=== PATIENT | female | born 1950 | race Caucasian/White ===

== ENCOUNTER 2021-08-13 10:11 | Outpatient (CLI) | payer SELFPAY, OTHER ==
--- NOTE | 2021-08-13 10:14 | ECHOD_ITS ---
Reason For Study: Chest Pain Procedure This was a 2D Doppler, Color Flow transthoracic echocardiogram. Exam performed in department. Left Ventricle Normal LV size. Mild concentric left ventricular hypertrophy. Left ventricular systolic function is normal. The estimated ejection fraction is 60 %. Stage 1 diastolic dysfunction. No regional wall motion abnormalities noted. Right Ventricle Normal RV size. Normal systolic function. Atria Normal left atrium. Normal right atrium. Mitral Valve Normal mitral valve. Tricuspid Valve Normal tricuspid valve. Mild (1+) tricuspid valve insufficiency. Pulmonary artery systolic pressure is 24 mmHg. Aortic Valve Trisinus/trileaflet aortic valve. Mild focal aortic valve calcification. Pulmonic Valve Normal pulmonic valve. Great Vessels Normal aortic root. The pulmonary artery is normal size. Normal inferior vena cava. Pericardium/Pleural No pericardial effusion. MMode/2D Measurements & Calculations LVIDd: 3.5 cm IVSd: 1.2 cm Ao root diam: 3.2 cm LVIDs: 2.2 cm LVPWd: 1.2 cm RVDd: 2.7 cm FS: 37.2 % LAV(MOD-bp): 30.0 ml LVAd ap4: 20.3 cm2 SV(MOD-sp4): 31.2 ml LAV(MOD-bp) Indexed: 16.1 ml/m2 LVLd ap4: 7.1 cm LAV(MOD-sp2): 38.8 ml EDV(MOD-sp4): 48.3 ml LAV(MOD-sp4): 22.4 ml EDV(sp4-el): 49.4 ml LVAs ap4: 11.1 cm2 LVLs ap4: 6.2 cm ESV(MOD-sp4): 17.2 ml ESV(sp4-el): 16.7 ml EF(MOD-sp4): 64.5 % EF(sp4-el): 66.1 % SV(sp4-el): 32.7 ml LA A4 area: 10.8 cm2 LA dimension(2D): 3.7 cm RA A4 area: 10.8 cm2 Doppler Measurements & Calculations MV E max erasto: 68.7 cm/sec Lat Peak E' Erasto: 3.1 cm/sec Med Peak E' Erasto: 5.4 cm/sec MV A max erasto: 98.1 cm/sec E/E' lat: 22.2 E/E' med: 12.8 MV E/A: 0.70 Ao V2 max: 129.4 cm/sec LV V1 max: 92.9 cm/sec PA V2 max: 94.9 cm/sec Ao max P.7 mmHg LV V1 max P.4 mmHg Ao V2 mean: 89.5 cm/sec Ao mean P.6 mmHg Ao V2 VTI: 27.0 cm TR max erasto: 224.7 cm/sec TR max P.2 mmHg ECHO/Echo Complete Interpretation Summary Normal LV size. Left ventricular systolic function is normal. The estimated ejection fraction is 60 %. Mild concentric left ventricular hypertrophy. Stage 1 diastolic dysfunction. Pulmonary artery systolic pressure is 24 mmHg. Ordering Physician: Jose G Moulton Referring Physician: [place] Performed By: Tricia Kennedy, RDSARAH, RVT
== END 2021-08-13 23:59 | disposition home or self-care (01) ==
PROVIDERS: PCP Nurse Practitioner Family; Visit Provider Internal Medicine Cardiovascular Disease
DX: I10 Essential (primary) hypertension (principal); R07.9 Chest pain, unspecified
CPT/HCPCS: 93306